=== PATIENT | male | born 1985 | race African-American/Black ===

== ENCOUNTER 2020-03-09 23:00 | Emergency (ER) | payer MEDICAID ==
[~2020-03-09] VITALS: Ht 172.7 cm; Wt 81.8 kg
[2020-03-09] MEDS ORDERED: LEVO2.5S4 PO (23:12)
[2020-03-10 00:55] VITALS: BP 138/87
== END 2020-03-10 01:30 | disposition home or self-care (01) ==
LOC: EMS 23:00
DX: L50.9 Urticaria, unspecified (principal)
CPT/HCPCS: 99283; Z7502